=== PATIENT | female | born 2005 | race Caucasian/White ===

== ENCOUNTER 2024-03-06 08:57 | Emergency (ER) | payer OTHER, SELFPAY ==
[2024-03-06 09:05] VITALS: BP 119/72; PULSE 66; RESP 16; TEMP 36.8; O2SAT 99; BMI 22.0
== END 2024-03-06 10:40 | disposition home or self-care (01) ==
PROVIDERS: Emergency Provider Emergency Medicine
CPT/HCPCS: 99281